=== PATIENT | female | born 1990 | race Caucasian/White ===

== ENCOUNTER 2021-03-28 00:11 | Emergency (ER) | payer OTHER, SELFPAY ==
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
[2021-03-28 00:32] VITALS: BP 134/85; PULSE 109; RESP 16; TEMP 37.1; O2SAT 99; BMI 27.1
--- NOTE | 2021-03-28 02:07 | PC.NURSE ---
ED provider at bed side.
--- NOTE | 2021-03-28 02:09 | ECG_ITS ---
Test Reason : CHEST PAIN Blood Pressure : / mmHG Vent. Rate : 097 BPM Atrial Rate : 097 BPM P-R Int : 202 ms QRS Dur : 090 ms QT Int : 344 ms P-R-T Axes : 061 076 018 degrees QTc Int : 436 ms Normal sinus rhythm normal ECG No previous ECGs available Referred By: Shailesh Hdz Electronically Signed By:Stan Moe
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
[2021-03-28 02:11] VITALS: BP 131/93; PULSE 101; RESP 18; TEMP 36.9; O2SAT 98
[2021-03-28] MEDS: Ibuprofen 600 MG TABLET PO (02:20)
== END 2021-03-28 03:11 | disposition home or self-care (01) ==
PROVIDERS: Emergency Provider Emergency Medicine; PCP Internal Medicine
DX: S29.011A Strain of muscle and tendon of front wall of thorax, initial encounter (principal); V43.62XA Car passenger injured in collision with other type car in traffic accident, initial encounter; Y93.89 Activity, other specified; Y92.414 Local residential or business street as the place of occurrence of the external cause; Y99.9 Unspecified external cause status
CPT/HCPCS: 71046; 93005; 99283; 99284